=== PATIENT | male | born 1960 | race Caucasian/White ===

== ENCOUNTER 2018-04-07 06:59 | Inpatient (IN) ==
[2018-04-07] MEDS ORDERED: cefOXitin 2,000 MG in Water for inj. (sterile) 20 ML 20 ML IVP ONE (07:16)
--- NOTE | 2018-04-07 07:48 | Anesthesia Evaluation PreOp ---
Date of Encounter: 04/07/18 Time of Encounter: 07:46 - Past History Planned Operation: LAR poss transanal resection Cardiac History: Denies any Significant Hx Pulmonary History: Denies Any Significant HX MACHINE I CUTTER History: Denies Any Significant HX Other Medical History: Other (colon polyps rectum and asc colon) Anesthesia History: No Prior Anesthetic Complications, Past Anesthesia ( colonoscopy) Alcohol Use: none Drug use: none Medications and Allergies No Known Home Drugs 03/13/18 [History] 3 Allergy/AdvReac Type Severity Reaction Status Date / Time No Known Allergies Allergy Verified 03/28/18 11:39 - Meds/Allergy Pre-op Review Medications Reviewed: Yes Allergies Reviewed: Yes Beta Blockers on Current Med List: No Anesthesia Results - Labs Laboratory Tests 01/03/18 03/28/18 09:10 11:47 WBC 5.5 Hgb 14.3 Hct 42.3 Plt Count 170 Sodium 141 Potassium 4.2 Chloride 108 H Carbon Dioxide 27 BUN 11 Creatinine 1.05 Est GFR (Non-Af Amer) > 60 Anesthesia Exam Vital Signs/O2 Sat/Glucose, Most Recent Temp Pulse Resp BP Pulse Ox 97 F L 109 18 153/96 98 04/07/18 07:16 04/07/18 07:16 04/07/18 07:16 04/07/18 07:16 04/07/18 07:16 Weight: 78 kg NPO (# of Hours): > 8 hours - HEENT Pupil (Motor): Pupils equal Mallampati: II Teeth: Normal Oral Opening: Greater than 3 - MACHINE I CUTTER LOC: Oriented MACHINE I CUTTER Motor: Normal RUE, Normal LUE, Normal RLE, Normal LLE, Normal Face MACHINE I CUTTER Sensory: Normal: RUE, LUE, RLE, LLE, Face - Cardiac Rhythm: Regular Murmur: None - Pulmonary Breath Sounds: bilateral Clear Respiratory Effort: Symmetrical Anesthesia Assess/Plan ASA Score: 2 Modified [place] Scale for Level of Consciousness: Cooperative, oriented, and tranquil Anesthetic Plan: General Monitoring Plan: Standard Monitors Recovery Plan: PACU
[2018-04-07] MEDS ORDERED: Famotidine 20 MG/2 ML VIAL IVP ONE (07:56)
[2018-04-07] MEDS ORDERED: Acetaminophen IV 1,000 MG/100 ML INFUS..BTL IVPB ONE (07:57)
[2018-04-07] MEDS ORDERED: *HR* Promethazine 25 MG/ML VIAL IVP PRN (07:57)
[2018-04-07] MEDS ORDERED: Ondansetron 4 MG/2 ML VIAL IVP ONE (07:57)
--- NOTE | 2018-04-07 07:59 | History & Physical Report ---
Date of Encounter: 04/07/18 Time of Encounter: 07:58 24 Hour HP Update - Instructions Instructions: If the History and Physical is less than 30 days old and was completed prior to A.M. admission and or procedure and has NOT been updated on calendar day of procedure please complete this update prior to performing procedure. - Update Patient reports changes in Medical Condition: No Changes in examination, assessment, or condition: No Changes in Medication: No Preop tests/diagnostics Reviewed: Yes Surgery Remains Indicated: Yes Consent for Planned Operative Procedure(s) Verified: Yes - Pre-Operative Checklist Preoperative Checklist Indicated: Yes Prophylactic Antibiotic Ordered: Yes Home Medications Include Beta Sowmya: No
[2018-04-07] MEDS: Ringers Solution, Lactated 1,000 ML IVC SCH ×2 (08:03→13:59)
[2018-04-07] MEDS ORDERED: *HR* Rocuronium Bromide 50 MG/5 ML VIAL ONE ×2 (08:32→10:07)
[2018-04-07] MEDS ORDERED: Ondansetron 4 MG/2 ML VIAL ONE (08:32)
[2018-04-07] MEDS ORDERED: Dexamethasone 4 MG/ML VIAL ONE (08:32)
[2018-04-07] MEDS ORDERED: *HR* Midazolam HCl 2 MG/2 ML VIAL ONE (08:32)
[2018-04-07] MEDS ORDERED: *HR* Propofol 200 MG/20 ML VIAL IVP ONE (08:32)
[2018-04-07] MEDS ORDERED: *HR* FentaNYL (PF) 100 MCG/2 ML VIAL ONE ×2 (08:32→10:13)
[2018-04-07] MEDS ORDERED: Lidocaine -MPF 2% 2 ML VIAL ONE (08:32)
[2018-04-07] MEDS ORDERED: Neostigmine Methylsulfate 3 MG/3 ML SYRINGE ONE (12:31)
[2018-04-07] MEDS: *HR* HYDROmorphone (PF) 1 MG/ML SYRINGE IVP PRN ×2 (13:07→13:25)
--- NOTE | 2018-04-07 13:38 | Operative Note ---
Date of procedure: 04/07/18 Pre-op diagnosis: Unresectable rectal polyp Post-op diagnosis: same Procedure: Robotic low anterior resection with 29 mm EEA stapling Anesthesia: GELY Surgeon: Danie Gallagher Was there an accounting manager assistant controller present: Yes Senior Director: Sophia Gonzales Estimated blood loss (cc): 30 Specimen: Rectum Condition: stable Disposition: same day Procedure in Detail: After informed consent, patient taken operating room placed supine position. I first attempted to perform a transanal excision. After placing the port through the anal canal I was unable to visualize the polyp. Due to this I then aborted this particular procedure and plan for a robotic low anterior resection. After adequate sedation anesthesia patient was placed in a lithotomy position. After proper timeout a 12 mm cannula site was placed right superior to the umbilicus. Pneumoperitoneum was greater. A 13 mm cannula was placed in right lower quadrant. 5 mm camera was placed in the right upper quadrant. An 8 mm cannula was placed in subxiphoid region followed by another 8 mm in the left lower quadrant. Patient was placed in a headdown position. The robot was docked over the patient's left hip. Small bowel swept out of the pelvis. Rectosigmoid colon was then grasped and retracted cephalad. The peritoneum was then scored level of the sacral promontory. The left ureter was identified and kept on harm's way. The inferior mesenteric artery was then taken with a vessel sealer. The lateral rectosigmoid stalks were taken down the vessel sealer. The dissection was carried out down to the pelvic floor. The pelvic floor musculature was easily visualized. Rectosigmoid colon was dissected free from the retro-pubic tubercle region and the seminal vesicles were kept out of harm's way. Once it was freed a 45 mm robotic Endo staplers fired across the rectum. Once it was retracted and area was demarcated on the rectosigmoid sigmoid colon for transection. Indocyanine green was infused and we had excellent perfusion. A counterincision was made in the suprapubic region. Dissection carried down the anterior rectus sheath. The rectus muscles were then divided in the midline with Brenda clamp. Once they were split the rectum and mesorectum were delivered. Kaylin bowel clamps are used to place across the colon proximal and distal and transected. Allis clamps are placed on the bowel and then a pursestring suture device placed on the colon. 3 -0 Prolene suture was passed. A pursestring sutures and created and a 29 mm EEA anvil was placed. Suture was tied and secured. Colon was then placed back in the pelvis. The stapler was passed through the anal canal and to the rectal stump and then the spear was placed through the staple line. The anvil was then connected secured and fired. There were 2 excellent donuts. A leak test revealed no leak. At that point the procedure was terminated. All incisions are closed with 0 Vicryl suture and 4-0 Vicryl suture. Marcaine was inserted in the Pfannenstiel incision. He tolerated the procedure well.
--- NOTE | 2018-04-07 13:52 | Anesthesia Evaluation Post Op ---
Date of Encounter: 04/07/18 Time of Encounter: 13:51 - Vital Signs Vital Signs: Vital Signs/O2 Sat, Most Current Temp Pulse Resp BP Pulse Ox 97.1 F L 75 16 166/103 95 04/07/18 13:19 04/07/18 13:39 04/07/18 13:39 04/07/18 13:39 04/07/18 13:39 - Lungs Lungs: Clear Ascult./Percussion - Airway Airway: Non-obstructed - Cardiovascular Regular Rate - Mental Status Mental Status: Asleep with brisk response to light stimulation - Pain Pain Scale: 8 - Nausea Vomiting Nausea Vomiting: Not Present - Hydration Hydration: NPO, Has not voided - Discharge PostOp Status: Transfer Patient to floor
[2018-04-07] MEDS ORDERED: OXYCODONE Oral CONC 10 MG/0.5 ML ORAL.SYG SL PRN ×2 (14:43→15:03)
[2018-04-07] MEDS ORDERED: Naloxone 0.4 MG/ML INJ IVP PRN (14:43)
[2018-04-07] MEDS ORDERED: Ondansetron 4 MG/2 ML VIAL IVP PRN (14:43)
[2018-04-07] MEDS: 0.9 % Sodium Chloride 1,000 ML IVC SCH ×2 (15:57→23:53)
[2018-04-07] MEDS: OXYCODONE Oral CONC 10 MG/0.5 ML ORAL.SYG SL PRN ×2 (17:13→21:10)
[2018-04-07] MEDS: Acetaminophen IV 1,000 MG/100 ML INFUS..BTL IVPB SCH ×2 (17:19→23:54)
[2018-04-08] MEDS: OXYCODONE Oral CONC 10 MG/0.5 ML ORAL.SYG SL PRN ×3 (01:57→22:05)
[2018-04-08 04:01] LABS: Basophils % 0.1 %; Hematocrit 35.9 % (37.5-50.1); Hemoglobin 12.5 g/dL (12.9-16.9); Immature Granulocytes % 0.5 % (0-4); Lymphocytes # 0.4 K/mcL (0.6-4.6); Lymphocytes % 2.6 %; Mean Corpuscular HGB Conc 34.8 g/dL (31.6-35.5); Mean Corpuscular Hemoglobin 29.6 pg (28.0-33.3); Mean Corpuscular Volume 85.1 fL (83.0-100.0); Mean Platelet Volume 10.1 fL (9.4-12.4); Monocytes # 1.1 K/mcL (0.0-1.3); Monocytes % 6.4 %; Neutrophils # 14.7 K/mcL (1.6-8.9); Platelet Count 205 K/mcL (140-400); Red Blood Count 4.22 M/mcL (4.19-5.50); Red Cell Distribution Width 12.9 % (11.5-14.5); Segmented Neutrophils % 90.4 %
[2018-04-08 04:26] LABS: BUN/Creatinine Ratio 18 (6-26); Blood Urea Nitrogen 22 mg/dL (6-20); Calcium 8.5 mg/dL (8.6-10.3); Carbon Dioxide 21 mEq/L (23-29); Chloride 104 mEq/L (98-107); Glucose 165 mg/dL (70-105); Osmolality,Calculated 283 (280-300); Potassium 4.8 mEq/L (3.5-5.1); Sodium 133 mEq/L (136-145); eGFR For African Americans > 60 (> 60); eGFR For Non-African Americans > 60 (> 60)
[2018-04-08] MEDS: Acetaminophen IV 1,000 MG/100 ML INFUS..BTL IVPB SCH ×2 (05:45→16:00)
[2018-04-08] MEDS: 0.9 % Sodium Chloride 1,000 ML IVC SCH ×2 (10:26→19:42)
--- NOTE | 2018-04-08 14:58 | General Surgery Progress Note ---
Date of Encounter: 04/08/18 Time of Encounter: 12:30 - Assessment and Plan (1) S/P colectomy Current Visit: Yes Status: Acute pod 1 LAR robotic will advance to fulls but cautioned patient on going slow and if nausea, pain, distention to stop eating continue prn pain control OOB ambulate gi/dvt prophylaxis pulmonary toilet/IS doing well (2) Leukocytosis Current Visit: Yes Status: Acute likely secondary to surgical intervention will follow Qualifiers: Leukocytosis type: unspecified Qualified Code(s): D72.829 - Elevated white blood cell count, unspecified Subjective Narrative: pain well controlled no nausea states overdid it on clears this am, some distention and discomfort no flatus or bm Objective Vital Signs - Last 8 Hours Temp Pulse Resp BP Pulse Ox 04/08/18 11:56 98.1 F 86 14 115/73 96 04/08/18 08:45 96 04/08/18 07:46 98.2 F 80 15 154/77 94 Intake and Output 04/07/18 04/08/18 04/08/18 23:59 07:59 15:59 Intake Total 2000 / 2000 440 / 440 2200 / 2200 Output Total 150 / 150 300 / 300 100 / 100 Balance 1850 / 1850 140 / 140 2100 / 2100 Intake: IV Fluids 1100 / 1100 200 / 200 1000 / 1000 0.9 % Sodium Chloride 1,000 ML 1000 / 1000 1000 / 1000 @ 100 mls/hr IVC .Q10H GOOD Rx#: [id number] Ofirmev 1,000 mg/100 ml 1,000 100 / 100 200 / 200 mg In 100 ml @ 400 mls/hr IVPB Q6HR GOOD Rx#:[id number] Oral 900 / 900 240 / 240 1200 / 1200 Output: Urine 150 / 150 300 / 300 100 / 100 Other: Meal clears Lunch Percent of Meal Consumed 0% Weight 78.5 kg Patient Weight 04/08/18 23:59 Weight 78.5 kg - General physical appearance well developed, well nourished, no distress - Eyes PERRL, normal ocular movement - ENT normal mucosa, normocephalic - Neck Neck exam: trachea midline - Respiratory normal expansion - Cardiovascular Cardiovascular exam: Present: RRR - Abdomen Abdomen: Present: soft, tender (appropriate post op tenderness). Absent: bowel sounds present, guarding, rebound - Incision Incision: Present: clean and dry, intact - Integumentary no rash, no growths - Musculoskeletal normal posture - Psychiatric oriented to time, oriented to person, oriented to place, speech is normal, memory intact - Labs 04/08/18 03:34 04/08/18 03:34 Diabetes panel 04/08/18 Range/Units 03:34 Sodium 133 L (136-145) mEq/L Potassium 4.8 (3.5-5.1) mEq/L Chloride 104 (98-107) mEq/L Carbon Dioxide 21 L (23-29) mEq/L BUN 22 H (6-20) mg/dL Creatinine 1.24 (0.70-1.30) mg/dL Glucose 165 H (70-105) mg/dL Calcium 8.5 L (8.6-10.3) mg/dL Calcium panel 04/08/18 Range/Units 03:34 Calcium 8.5 L (8.6-10.3) mg/dL Pituitary panel 04/08/18 Range/Units 03:34 Sodium 133 L (136-145) mEq/L Potassium 4.8 (3.5-5.1) mEq/L Chloride 104 (98-107) mEq/L Carbon Dioxide 21 L (23-29) mEq/L BUN 22 H (6-20) mg/dL Creatinine 1.24 (0.70-1.30) mg/dL Glucose 165 H (70-105) mg/dL Calcium 8.5 L (8.6-10.3) mg/dL Adrenal panel 04/08/18 Range/Units 03:34 Sodium 133 L (136-145) mEq/L Potassium 4.8 (3.5-5.1) mEq/L Chloride 104 (98-107) mEq/L Carbon Dioxide 21 L (23-29) mEq/L BUN 22 H (6-20) mg/dL Creatinine 1.24 (0.70-1.30) mg/dL Glucose 165 H (70-105) mg/dL Calcium 8.5 L (8.6-10.3) mg/dL - VTE Documentation of Mechanical Device: Intermittent pneumatic compression device Consult Discharge Plan - Plan Referrals: Temi Bolaños CNP [Advanced Practice Nurse] - 04/21/18 10:30 am NONE,PCP [Primary Care Provider] -
[2018-04-09 04:31] LABS: Basophils % 0.1 %; Hematocrit 32.6 % (37.5-50.1); Hemoglobin 11.4 g/dL (12.9-16.9); Immature Granulocytes % 0.5 % (0-4); Lymphocytes # 1.3 K/mcL (0.6-4.6); Lymphocytes % 9.8 %; Mean Corpuscular Hemoglobin 31.1 pg (28.0-33.3); Mean Corpuscular Volume 89.1 fL (83.0-100.0); Mean Platelet Volume 10.2 fL (9.4-12.4); Monocytes % 7.6 %; Platelet Count 162 K/mcL (140-400); Red Blood Count 3.66 M/mcL (4.19-5.50)
[2018-04-09] MEDS: OXYCODONE Oral CONC 10 MG/0.5 ML ORAL.SYG SL PRN ×3 (04:42→15:47)
[2018-04-09] MEDS: 0.9 % Sodium Chloride 1,000 ML IVC SCH (05:37)
[2018-04-09] MEDS ORDERED: *HR* OxyCODONE/APAP 5/325 TABLET PO PRN (12:43)
--- NOTE | 2018-04-09 12:46 | General Surgery Progress Note ---
Date of Encounter: 04/09/18 Time of Encounter: 11:10 - Assessment and Plan (1) S/P colectomy Current Visit: Yes Status: Acute pod 2 LAR robotic will advance to regular but cautioned patient on going slow and if nausea, pain , distention to stop eating continue prn pain control - started percocet OOB ambulate gi/dvt prophylaxis - epcds (no heparin, pt with large ecchymosis RLQ and right flank) pulmonary toilet/IS doing well await return bowel function/awaiting flatus (2) Leukocytosis Current Visit: Yes Status: Acute likely secondary to surgical intervention is trending down will follow Qualifiers: Leukocytosis type: unspecified Qualified Code(s): D72.829 - Elevated white blood cell count, unspecified Subjective Patient reports: feels better, still having pain, pain is less, tolerating liquids well, no flatus, no bowel movement, afebrile Objective Vital Signs - Last 8 Hours Temp Pulse Resp BP Pulse Ox 04/09/18 11:52 97 04/09/18 10:49 98.1 F 73 14 112/67 97 04/09/18 07:52 97.6 F 69 14 111/64 97 Intake and Output 04/08/18 04/09/18 04/09/18 23:59 07:59 15:59 Intake Total 1440 / 1440 1100 / 1100 480 / 480 Output Total 925 / 925 400 / 400 200 / 200 Balance 515 / 515 700 / 700 280 / 280 Intake: IV Fluids 1000 / 1000 1000 / 1000 0.9 % Sodium Chloride 1,000 ML 1000 / 1000 1000 / 1000 @ 100 mls/hr IVC .Q10H GOOD Rx#: [id number] Oral 440 / 440 100 / 100 480 / 480 Output: Urine 925 / 925 400 / 400 200 / 200 Other: Meal Dinner Breakfast Percent of Meal Consumed 80% 100% Weight 79.4 kg Patient Weight 04/09/18 23:59 Weight 79.4 kg - General physical appearance well developed, well nourished, no distress - Eyes PERRL, normal ocular movement - ENT normal mucosa, normocephalic - Neck Neck exam: trachea midline - Respiratory normal expansion, clear to auscultation - Cardiovascular Cardiovascular exam: Present: RRR - Abdomen Abdomen: Present: soft, tender (appropriate post op tenderness). Absent: bowel sounds present, distended, guarding, rebound Additional Comments: ecchymosis of RLQ and flank - Incision Incision: Present: clean and dry, intact - Neurologic CN 2-12 grossly intact - Musculoskeletal normal gait, normal posture - Psychiatric oriented to time, oriented to person, oriented to place, speech is normal, memory intact - Labs 04/09/18 03:57 04/08/18 03:34 - VTE Documentation of Mechanical Device: Intermittent pneumatic compression device Consult Discharge Plan - Plan Referrals: Temi Bolaños MARBLE MECHANIC HELPER [Advanced Practice Nurse] - 04/21/18 10:30 am NONE,PCP [Primary Care Provider] -
[2018-04-10] MEDS: OXYCODONE Oral CONC 10 MG/0.5 ML ORAL.SYG SL PRN ×2 (04:13→13:26)
[2018-04-10 06:12] LABS: Basophils % 0.3 %; Eosinophils # 0.1 K/mcL (0.0-0.6); Eosinophils % 0.7 %; Hematocrit 29.3 % (37.5-50.1); Immature Granulocytes % 0.3 % (0-4); Lymphocytes # 1.3 K/mcL (0.6-4.6); Lymphocytes % 17.1 %; Mean Corpuscular HGB Conc 34.1 g/dL (31.6-35.5); Mean Platelet Volume 10.6 fL (9.4-12.4); Monocytes # 0.8 K/mcL (0.0-1.3); Monocytes % 11.2 %; Neutrophils # 5.3 K/mcL (1.6-8.9); Platelet Count 151 K/mcL (140-400); Red Blood Count 3.33 M/mcL (4.19-5.50); Red Cell Distribution Width 13.1 % (11.5-14.5); Segmented Neutrophils % 70.4 %
--- NOTE | 2018-04-10 11:11 | Discharge Summary ---
Orders not resulted at time of discharge: Pending orders 04/07/18 12:53 Surgical Pathology [PTH] Routine Date of Encounter: 04/10/18 Time of Encounter: 11:00 - Discharge Diagnosis (1) Rectal polyp Priority: Primary Status: Acute Comments: POD #[address] Elliott Lopez pending Discharge planning (2) S/P colectomy Priority: Primary Status: Acute Comments: POD #[address] Elliott Lopez pending Discharge planning General Surgery Exam Initial Vital Signs Temp Pulse Resp BP Pulse Ox 97 F L 109 18 153/96 98 04/07/18 07:16 04/07/18 07:16 04/07/18 07:16 04/07/18 07:16 04/07/18 07:16 - General physical appearance well developed, well nourished, no distress - Eyes normal ocular movement - ENT normal mucosa, atraumatic, normocephalic - Neck trachea midline - Respiratory normal respiratory effort, clear to auscultation - Cardiovascular Cardiovascular exam: Present: RRR - Abdomen Abdomen general surgery: Present: bowel sounds present, soft, tender (minimal, expected tenderness), wound (RLQ hematoma noted) - Incision Incision: Present: clean and dry, intact - Integumentary Integumentary general surgery: Present: warm and dry - Neurologic Present: CN 2-12 grossly intact - Musculoskeletal Present: normal gait, normal posture - Psychiatric Psychiatric general surgery: Present: appropriate, oriented to person, oriented to place, oriented to time, speech is normal, memory intact - Hospital Course Hospital course: Mr. Roblero is a 57 year old male with a history of an unresectable rectal polyp. He was taken to the operating room with Dr. Gallagher for a low anterior resection. His diet has been advanced with return of bowel function. He is currently passing flatus and tolerating a soft diet. He denies any nausea or vomiting or bloating. His vital signs are stable and he is afebrile. He is voiding without difficulty. He states that his pain is very well controlled. He is ambulating without difficulty. We will begin discharge planning to home and plan for outpatient follow-up in the next 10-14 days. His pathology was pending at discharge. - Time Spent with Patient Total time spent providing and/or coordinating discharge services: Less than 30 minutes - Discharge Medications Prescriptions: Docusate [Colace] 100 mg PO BID #30 capsule OxyCODONE/APAP 5/325 [Percocet 5/325 MG] 1 each PO Q6H PRN 5 Days #20 tablet PRN Reason: Pain Home Medications: Docusate [Colace] 100 mg PO BID #30 capsule 04/10/18 [Rx] OxyCODONE/APAP 5/325 [Percocet 5/325 MG] 1 each PO Q6H PRN 5 Days #20 tablet 11/27 [Rx] Allergies/Adverse Reactions: 3 Allergy/AdvReac Type Severity Reaction Status Date / Time No Known Allergies Allergy Verified 03/28/18 11:39 Date of admission: 04/07/18 14:22 Primary care physician: PCP NONE [facility] Anticipated date of discharge: 04/10/18 Labs on day of discharge: Labs from last 24 hours 04/10/18 04:31 WBC 7.5 RBC 3.33 L Hgb 10.0 L Hct 29.3 L MCV 88.0 MCH 30.0 MCHC 34.1 RDW 13.1 Plt Count 151 MPV 10.6 Immature Gran % 0.3 Seg Neutrophils % 70.4 Lymphocytes % 17.1 Monocytes % 11.2 Eosinophils % 0.7 Basophils % 0.3 Neutrophils # 5.3 Lymphocytes # 1.3 Monocytes # 0.8 Eosinophils # 0.1 Basophils # 0.0 - Patient Status Disposition: Home, Self-Care Condition: Good Functional capacity at discharge: independent ambulation Overall status at discharge: patient is progressing back to baseline - Discharge Instructions Follow Up With: Temi Bolaños CNP [Advanced Practice Nurse] - 04/21/18 10:30 am NONE,PCP [Primary Care Provider] - Additional Instructions: #1 may shower, no tub bath for 2 weeks #2 wash incisions with soap and water and pat dry daily #3 no lifting, pushing, pulling more than 15 pounds for the next 4 weeks #4 no driving until off narcotics for 24 hours and able to safely react in the car #5 may climb stairs Wound care- cover right lower quadrant incision with 4X4 or bandaid daily while seeping - Diet and Activity Activity: other (See additional instructions above) Diet: advance to your usual diet - Attending Attestation For this encounter, I have reviewed the GAME MANAGER or PA documentation, treatment plan, and medical decision making; and I have had face to face time with this patient.
[2018-04-10 11:14] VITALS: BP 152/88
== END 2018-04-10 14:11 | disposition home or self-care (01) | DRG 334 ==
LOC: SAMDAY 06:59 → 3ANU 14:22
PROVIDERS: ADMIT Surgery; ATTEND Surgery